=== PATIENT | female | born 1965 | race Two or more races ===

== ENCOUNTER 2020-10-27 11:21 | Emergency (ER) | payer MEDICAID ==
[~2020-10-27] VITALS: Ht 157.5 cm; Wt 61.2 kg
[~2020-10-27 11:21] MED LIST: PEPCID40 MG PO
--- NOTE | 2020-10-27 11:42 | NUR ---
pt arrives to ER with complaints of chest pain x few days. pt states chest pain radiates down arm. pt placed on fruit i farmworker. pt denies previous cardiac history.
--- NOTE | 2020-10-27 11:55 | Emergency Room Report ---
History of Present Illness General Chief Complaint: Chest Pain Source: Patient Present Illness HPI Patient presents with left-sided chest pain that began while while she was driving today. Radiates to her left arm and she feels that there is aching and pressure. She also feels that her arm is wrapped up. She is taking no medication. Does not seem to worsen when she is exerting herself. It somewhat positional and pleuritic. She denies any fevers or cough. She also denies shortness of breath. She has had pain similar to this in the past but never this severe and not rating down her arm. She rates the pain 8/10. She denies diaphoresis. Is not taking control. Cardiac risk factors none that she knows of. She does not know her cholesterol. No exposure to Covid positive contacts. She tested negative in July. No sore throat, palpitations, nausea, vomiting, diarrhea, dysuria, abdominal pain, shortness of breath, joint pain, rashes, depression, anxiety, visual changes, dizziness, headache. The patient was seen in 2015 for abdominal pain. At that time work-up was negative including CT scan which showed a small hiatal hernia. 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 Sp02 EP Interpretation: reviewed, normal General Appearance: well appearing, no apparent distress, GCS 15, non-toxic Head: normocephalic Eyes: bilateral eye normal inspection, bilateral eye PERRL, bilateral eye EOMI ENT: other - Wearing a mask Neck: full range of motion, supple Respiratory: lungs clear, normal breath sounds, other - Chest wall tenderness which recreates the pain Cardiovascular #1: regular rate, rhythm Cardiovascular #2: 2+ radial (R) - Good capillary fill Gastrointestinal: normal inspection, normal bowel sounds, non tender, no mass, non-distended Musculoskeletal: back normal, normal range of motion, gait/station normal Neurologic: alert, distal neuro normal - Specifically left upper arm, oriented x3, grossly normal Psychiatric: mood/affect normal Skin: no rash, warm/dry Medical Decision Making Diagnostic Impression: Primary Impression: Chest pain Qualified Codes: R07.89 - Other chest pain Additional Impression: Chest wall pain ER Course Patient presents with atypical chest pain. Differential includes acute myocardial infarction, unstable angina, pulmonary embolus, reflux reflux esophagitis, costochondritis amongst others. Her risk factors for cardiac disease are none that she knows of. She will be evaluated with an EKG, chest x- ray and labs. Based on vital signs and exam considerations for pulmonary embolus and risk for this is extremely low. Patient be treated with aspirin, Tylenol and famotidine. EKG sinus rhythm rate of 70 normal EKG. labs remarkable for normal CBC and negative troponin. Patient improved with treatment. Discussed findings with patient and the need for outpatient follow-up. Discussed the likelihood of chest wall pain. No medical emergency at this time. Heart score 0. Patient stable for outpatient observation and treatment. Laboratory Tests Test 10/27/20 11:37 White Blood Count 5.4 K/UL (4.8-10.8) Red Blood Count 4.09 M/UL (4.20-5.40) L Hemoglobin 12.3 G/DL (12.0-16.0) Hematocrit 37.2 % (37.0-47.0) Mean Corpuscular Volume 91 FL (80-99) Mean Corpuscular Hemoglobin 30.1 PG (27.0-31.0) Mean Corpuscular Hemoglobin Concent 33.1 G/DL (32.0-36.0) Red Cell Distribution Width 12.2 % (11.6-14.8) Platelet Count 245 K/UL (150-450) Mean Platelet Volume 8.5 FL (6.5-10.1) Neutrophils (%) (Auto) 50.5 % (45.0-75.0) Lymphocytes (%) (Auto) 39.9 % (20.0-45.0) Monocytes (%) (Auto) 7.0 % (1.0-10.0) Eosinophils (%) (Auto) 1.2 % (0.0-3.0) Basophils (%) (Auto) 1.4 % (0.0-2.0) Prothrombin Time 10.8 SEC (9.30-11.50) Prothrombin Time INR 1.0 (0.9-1.1) Activated Partial Thromboplast Time 25 SEC (23-33) Sodium Level 140 MMOL/L (136-145) Potassium Level 3.7 MMOL/L (3.5-5.1) Chloride Level 104 MMOL/L (98-107) Carbon Dioxide Level 29 MMOL/L (21-32) Anion Gap 8 mmol/L (5-15) Blood Urea Nitrogen 13 mg/dL (7-18) Creatinine 0.8 MG/DL (0.55-1.30) Estimated Glomerular Filtration Rate > 60 mL/min (>60) Glucose Level 93 MG/DL (74-106) Calcium Level 9.2 MG/DL (8.5-10.1) Total Bilirubin 0.4 MG/DL (0.2-1.0) Aspartate Amino Transferase (AST) 42 U/L (15-37) H Alanine Aminotransferase (ALT) 46 U/L (12-78) Alkaline Phosphatase 89 U/L (46-116) Total Creatine Kinase 135 U/L (26-308) Troponin I 0.000 ng/mL (0.000-0.056) Pro-B-Type Natriuretic Peptide 45 pg/mL (0-125) Total Protein 7.8 G/DL (6.4-8.2) Albumin 4.0 G/DL (3.4-5.0) Globulin 3.8 g/dL Albumin/Globulin Ratio 1.1 (1.0-2.7) EKG Diagnostic Results Rate: normal Rhythm: NSR ST Segments: no acute changes Rhythm Strip Diag. Results EP Interpretation: yes Rhythm: NSR, no PVC's, no ectopy Chest X-Ray Diagnostic Results Chest X-Ray Diagnostic Results : Chest X-Ray Ordered: Yes # of Views/Limited/Complete: 1 View Indication: Chest Pain EP Interpretation: Yes Interpretation: no consolidation, no effusion, no pneumothorax Impression: No acute disease Electronically Signed by: Electronically signed by Pete Burns MD Last Vital Signs Date Time Temp Pulse Resp B/P (MAP) Pulse Ox O2 Delivery O2 Flow Rate FiO2 10/27/20 12:05 97.9 16 117/70 98 Room Air 10/27/20 11:41 72 Status: improved Disposition: HOME, SELF-CARE Condition: Improved Scripts Famotidine* (Pepcid 20mg tablet*) 20 Mg Tablet 20 MG ORAL DAILY for Gerd, #30 TAB 0 Refills Prov: Pete Burns MD 10/27/20 Ibuprofen* (MOTRIN*) 600 Mg Tablet 600 MG ORAL Q6H PRN for FOR PAIN, #20 TAB 0 Refills Prov: Pete Burns MD 10/27/20 Referrals: [facility],REFERRING (PCP) Pete Burns MD Oct 27, 2020 11:55
[2020-10-27 11:57] LABS: BASOPHILS % (AUTO) 1.4 % (0.0-2.0); EOSINOPHILS % (AUTO) 1.2 % (0.0-3.0); HEMATOCRIT 37.2 % (37.0-47.0); HEMOGLOBIN 12.3 G/DL (12.0-16.0); LYMPHOCYTES % (AUTO) 39.9 % (20.0-45.0); MEAN CORPUSCULAR VOLUME 91 FL (80-99); NEUTROPHILS % (AUTO) 50.5 % (45.0-75.0); PLATELET COUNT 245 K/UL (150-450); RED BLOOD COUNT 4.09 M/UL (4.20-5.40); RED CELL DISTRIBUTION WIDTH 12.2 % (11.6-14.8); WHITE BLOOD COUNT 5.4 K/UL (4.8-10.8)
[2020-10-27] MEDS ORDERED: Acetaminophen 500mg (ES) tab ORAL ONE (12:00)
[2020-10-27 12:01] LABS: ANION GAP 8 mmol/L (5-15); BLOOD UREA NITROGEN 13 mg/dL (7-18); CALCIUM 9.2 MG/DL (8.5-10.1); CARBON DIOXIDE 29 MMOL/L (21-32); CHLORIDE 104 MMOL/L (98-107); CREATININE 0.8 MG/DL (0.55-1.30); POTASSIUM 3.7 MMOL/L (3.5-5.1); SODIUM 140 MMOL/L (136-145)
[2020-10-27 12:05] VITALS: BP 117/70
[2020-10-27 12:12] LABS: ALANINE AMINOTRANSFERASE 46 U/L (12-78); ALBUMIN/GLOBULIN RATIO 1.1 (1.0-2.7); ALKALINE PHOSPHATASE 89 U/L (46-116); ASPARTATE AMINO TRANSFERASE 42 U/L (15-37); BILIRUBIN,TOTAL 0.4 MG/DL (0.2-1.0); CREATINE KINASE 135 U/L (26-308)
[2020-10-27] MEDS ORDERED: FAMOTIDINE20 MG ORAL (12:27)
[2020-10-27] MEDS ORDERED: IBUPROFEN600 M1 ORAL (12:27)
--- NOTE | 2020-10-27 12:39 | Diagnostic Imaging Report ---
EXAM: XR Chest, 1 View CLINICAL HISTORY: CP TECHNIQUE: Frontal view of the chest. COMPARISON: 12/14/09. FINDINGS: Lungs: Streaky opacities at the left base, likely subsegmental atelectasis. No clear consolidation. Pleural space: Mild elevation of the right hemidiaphragm. No pneumothorax. Heart: Unremarkable. No cardiomegaly. Mediastinum: Unremarkable. Bones/joints: Unremarkable. IMPRESSION: Streaky opacities at the left base, likely subsegmental atelectasis. No clear consolidation.
== END 2020-10-27 12:58 | disposition home or self-care (01) ==
LOC: EMR 11:46
DX: R07.89 Other chest pain (principal)
CPT/HCPCS: 36415; 71045; 80053; 82550; 83880; 84484; 85025; 85610; 85730; 93005; Z7502; 99284